=== PATIENT | female | born 1980 | race Caucasian/White ===

== ENCOUNTER 2017-04-18 15:38 | Emergency (ER) | payer OTHER ==
[2017-04-18 16:10] VITALS: RESP 18
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
--- NOTE | 2017-04-18 17:47 | XR ---
EXAMINATION TYPE: XR lumbosacral spine min 4V DATE OF EXAM: 04/18/2017 5:24 PM COMPARISON: NONE HISTORY: Low back pain TECHNIQUE: 5 views FINDINGS: Lumbar vertebra have normal alignment. There is narrowing at L4-5 disc space with spurring of the endplates. Sacroiliac joints appear intact. There is no sign of a compression fracture. IMPRESSION: Mild degenerative disc change at L4-5. Otherwise negative exam.
--- NOTE | 2017-04-18 17:48 | XR ---
EXAMINATION TYPE: XR cervical spine comp DATE OF EXAM: 04/18/2017 5:24 PM COMPARISON: NONE HISTORY: Neck pain TECHNIQUE: 5 views FINDINGS: Vertebra have normal spacing and alignment. Posterior elements are intact. Atlantoaxial fac et joint is normal. There are no cervical ribs. IMPRESSION: Negative cervical spine exam.
--- NOTE | 2017-04-18 17:48 | XR ---
EXAMINATION TYPE: XR shoulder complete BILAT DATE OF EXAM: 04/18/2017 5:24 PM COMPARISON: NONE HISTORY: Shoulder pain TECHNIQUE: 6 views FINDINGS: 3 views of each shoulder were obtained. I see no fracture nor dislocation. Joint spaces are normal. IMPRESSION: Normal bilateral shoulder exam.
[2017-04-18 18:17] VITALS: BP 131/86; PULSE 100; TEMP 98.2
== END 2017-04-18 18:17 | disposition home or self-care (01) ==
LOC: EC 15:38
DX: S39.012A Strain of muscle, fascia and tendon of lower back, initial encounter (principal); S16.1XXA Strain of muscle, fascia and tendon at neck level, initial encounter; M25.512 Pain in left shoulder; M25.511 Pain in right shoulder; F17.200 Nicotine dependence, unspecified, uncomplicated; Z88.0 Allergy status to penicillin; V87.8XXA Person injured in other specified noncollision transport accidents involving motor vehicle (traffic), initial encounter; Y92.410 Unspecified street and highway as the place of occurrence of the external cause
CPT/HCPCS: 72050; 72110; 99284

== ENCOUNTER → 2021-08-30 | Outpatient (CLI) | payer BC, OTHER ==
--- NOTE | 2021-08-30 15:23 | CT ---
EXAMINATION TYPE: CT abdomen pelvis w con DATE OF EXAM: 08/30/2021 HISTORY: Benign neoplasm of unspecified adrenal gland CT DLP: 1918.2mGycm Automated Exposure Control for Dose Reduction was Utilized. CONTRAST: CT scan of the abdomen and pelvis is performed with IV Contrast, patient injected with 100 mL of Isov ue 300. COMPARISON: None. FINDINGS: LUNG BASES: No significant abnormality is appreciated. LIVER/GB: No significant abnormality is appreciated. PANCREAS: No significant abnormality is seen. SPLEEN: No significant abnormality is seen. ADRENALS: Right adrenal gland within normal limits. There is 1.1 x 0.9 cm Central left adrenal gland containing fat and soft tissue density consistent with benign myolipoma. KIDNEYS: No significant abnormality is seen. BOWEL: Oral contrast reaches level of the terminal ileum. No suspicious small or large bowel dilatati on. Normal appearing appendix from cecum. UTERUS/ADNEXA: Anteverted uterus. Slight arcuate type morphology superiorly. There is 3.1cm thin wall ed cyst or cystic lesion in the left pelvis or ovary axial image 77. Occasional scattered pelvic phle boliths. LYMPH NODES: No greater than 1cm abdominal or pelvic lymph nodes are appreciated. OSSEOUS STRUCTURES: Moderate disc space narrowing and vacuum disc phenomenon L4-L5 and L5-S1 levels. OTHER: No significant additional abnormality is seen. 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 Pelvic findings have be b ralph evaluated and characterized with pelvic ultrasound follow-up if desired.
== END | disposition home or self-care (01) ==
LOC: RADCTMAIN 13:03
PROVIDERS: ATTEND Physician Assistant Medical
DX: D35.02 Benign neoplasm of left adrenal gland (principal); K63.5 Polyp of colon; K76.9 Liver disease, unspecified; N83.202 Unspecified ovarian cyst, left side; R16.1 Splenomegaly, not elsewhere classified
CPT/HCPCS: 74177; Q9967

== ENCOUNTER → 2025-04-11 | Outpatient (CLI) | payer OTHER ==
--- NOTE | 2025-04-11 08:26 | US ---
EXAMINATION TYPE: US liver DATE OF EXAM: 04/11/2025 COMPARISON: CT: 08/30/21 CLINICAL INDICATION: Female, 44 years old with history of R79.89 OTHER SPECIFIED ABNORMAL FINDINGS OF BLOOD; abnormal labs TECHNIQUE: Grayscale and color Doppler imaging of the right upper quadrant was performed. FINDINGS: EXAM MEASUREMENTS: Liver Length: 14.4 cm Gallbladder Wall: 0.15 cm CBD: 0.25 cm Right Kidney: 13.8 x 5.5 x 4.7 cm LICENSED AND CERTIFIED MIDWIFE NOTES: Pancreas: parts seen appear wnl Liver: heterogeneous. Hypoechoic area seen adjacent to GB measuring 3.0 x 2.2 x 1.8cm, probable foca l sparing Gallbladder: wnl Evidence for sonographic Rice's sign: No CBD: wnl Right Kidney: wnl IMPRESSION: 1. No evidence for acute process. 2. Hepatic steatosis with focal fatty sparing around the gallbladder fossa. [facility], , 04/11/2025 8:23 AM
== END | disposition home or self-care (01) ==
LOC: RADUSWWP 07:42
PROVIDERS: ATTEND Family Medicine
DX: K76.0 Fatty (change of) liver, not elsewhere classified (principal); R79.89 Other specified abnormal findings of blood chemistry
CPT/HCPCS: 76705

== ENCOUNTER 2025-05-12 11:10 | Day surgery (SDC) | payer OTHER ==
[2025-05-09 13:34] VITALS: BMI 38.3
[2025-05-12] MEDS: IV FLUID CONTINUATION 1,000 ML IV ONE (11:24)
[2025-05-12 11:42] LABS: Glucose,Whole Blood 145 mg/dL (70-110)
[2025-05-12 11:45] VITALS: TEMP 97.8
[2025-05-12] MEDS: LACTATED RINGERS 1,000 ML IV SCH (12:04)
[2025-05-12] MEDS ORDERED: GLYCOPYRROLATE 0.2 MG/ML 2 ML VIAL ONE (12:08)
[2025-05-12] MEDS ORDERED: PROPOFOL 10 MG/ML 20 ML VIAL IV ONE (12:08)
[2025-05-12] MEDS ORDERED: LIDOCAINE 2% (PF) 20 MG/ML 5 ML VIAL ONE (12:08)
--- NOTE | 2025-05-12 12:34 | P.PCN ---
Date of Procedure: 05/12/25 Preoperative Diagnosis: GERD Screening Postoperative Diagnosis: Gastritis Sigmoid colon polyp Procedure(s) Performed: EGD with biopsy Colonoscopy with forcep polypectomy Anesthesia: MAC Surgeon: Zulay Ansari Pathology: other (Sigmoid colon polyp, biopsies of antrum, duodenum, GE junction) Condition: stable Disposition: same day Indications for Procedure: 44-year-old female presents today for upper and lower endoscopy. She has history of polyps in the past and also with symptoms of reflux. She is taking omeprazole daily. Risks, benefits and alternatives were provided to the patient. All questions answered. Operative Findings: Gastritis Sigmoid colon polyp Description of Procedure: The patient was brought into the endoscopy suite and placed in left lateral decubitus position. Adequate sedation was achieved using conscious sedation. A bite-block was placed and an endoscope was placed in the oropharynx and advanced under endoscopic visualization. The endoscope was advanced through the esophagus into the stomach, through the gastric antrum and in through the pylorus. The third portion of duodenum was visualized. The endoscope was then slowly withdrawn. The first portion of duodenum was noted to have mild inflammatory changes.. Biopsies were taken. The antrum was noted to have mild inflammatory changes. Biopsies were taken. The gastric body distended normally and the gastric folds appeared normal and flattened with insufflation. A retroflexed view of the fundus and GE junction revealed no significant hiatal hernia. GE junction appeared normal and biopsies were taken. The esophagus appeared endoscopically normal. Excess air was removed and the scope was withdrawn. Digital rectal exam was performed and mild internal hemorrhoids were palpated. An endoscope was then placed in the rectum and advanced to the cecum as identified by landmarks including the appendiceal orifice and the ileocecal valve. The prep was good. The colonoscope was then slowly withdrawn, examining for any mucosal abnormalities. The cecum, ascending, transverse, descending and sigmoid colon were visualized adequately. There were no large neoplastic lesions noted throughout the colon. No evidence of diverticulosis. Small polyp was noted in the sigmoid colon. Forcep polypectomy was performed. Hemostasis was maintained. Retroflexion was performed in the rectum and internal hemorrhoids. Excess air was removed, the colonoscope withdrawn and the procedure terminated. The patient was then transferred to the recovery unit in stable condition. Repeat colonoscopy should be performed in 5 years.
[2025-05-12 12:38] VITALS: RESP 14
[2025-05-12 12:53] VITALS: BP 116/78; PULSE 81
== END 2025-05-12 13:10 | disposition home or self-care (01) ==
LOC: ORWHC2ENDO 11:10
PROVIDERS: ATTEND Surgery
DX: Z12.11 Encounter for screening for malignant neoplasm of colon (principal); D12.5 Benign neoplasm of sigmoid colon; K64.8 Other hemorrhoids; K29.50 Unspecified chronic gastritis without bleeding; K31.89 Other diseases of stomach and duodenum; K21.00 Gastro-esophageal reflux disease with esophagitis, without bleeding; I10 Essential (primary) hypertension; E11.9 Type 2 diabetes mellitus without complications; E78.5 Hyperlipidemia, unspecified; Z79.1 Long term (current) use of non-steroidal anti-inflammatories (NSAID); Z79.899 Other long term (current) drug therapy; Z86.0100 Personal history of colon polyps, unspecified; Z88.0 Allergy status to penicillin
CPT/HCPCS: 45380; 43239; 81025; 88305; 84703; J2704; J2003; J1596